=== PATIENT | female | born 1995 | race American Indian/Alaskan Native ===

== ENCOUNTER 2016-07-22 04:51 | Emergency (ER) | payer MEDICAID, OTHER ==
[2016-07-22 06:02] VITALS: BP 132/82
[2016-07-22] MEDS ORDERED: ZOFRAN ODT PO ONE (07:48)
[2016-07-22] MEDS ORDERED: NORCO 5/325 PO ONE (07:48)
[2016-07-22] MEDS ORDERED: XYLOCAINE 1% 20 mL INFILTRATI ONE (07:49)
[2016-07-22] MEDS ORDERED: KEFLEX PO ONE (07:49)
[2016-07-22] MEDS ORDERED: NACL 0.9% IR ONE (07:49)
--- NOTE | 2016-07-22 08:45 | Emergency Department Report ---
- General Chief Complaint: Skin/Abscess/Foreign Body Stated Complaint: RT MIDDLE FINGER SWOLLEN/PAIN Time Seen by Provider: 07/22/16 07:40 Source: patient Mode of arrival: Ambulatory Limitations: No Limitations - History of Present Illness Initial Comments: PT c/o R middle finger infection x 7 days. PT states she does chew her cuticles. PT states the infection drained some and improved but has since gotten worse. Onset/Timin -: Gradual, week(s) Location: other (R 3rd finger, ulnar aspect ) Extremity Location: Right: Hand Associated Symptoms: pain - Related Data Previous Rx's Medication Instructions Recorded Last Taken Type Acetaminophen/Codeine [Tylenol #3] 1 tab PO Q6H PRN #10 tab 07/22/16 Unknown Rx Cephalexin [Keflex] 500 mg PO Q6HR 7 Days 07/22/16 Unknown Rx Allergies Allergy/AdvReac Type Severity Reaction Status Date / Time No Known Allergies Allergy Unverified 10/29/13 09:13 ED Review of Systems ROS: Stated complaint: RT MIDDLE FINGER SWOLLEN/PAIN Other details as noted in HPI Comment: All other systems reviewed and negative Constitutional: chills (while in ED ). denies: fever Gastrointestinal: nausea Musculoskeletal: other (pain and swelling ) Skin: as per HPI (infection ), change in color ED Past Medical Hx - Past Medical History Previous Medical History?: No Hx Congestive Heart Failure: No Hx Diabetes: No Hx Deep Vein Thrombosis: Yes Hx Asthma: No Hx COPD: No - Surgical History Past Surgical History?: No - Social History Smoking Status: Current Every Day Smoker Substance Use Type: Marijuana - Medications Home Medications: Home Medications Medication Instructions Recorded Confirmed Last Taken Type Acetaminophen/Codeine [Tylenol #3] 1 tab PO Q6H PRN #10 tab 07/22/16 Unknown Rx Cephalexin [Keflex] 500 mg PO Q6HR 7 Days 07/22/16 Unknown Rx ED Physical Exam - General Limitations: No Limitations General appearance: alert, in no apparent distress - Head Head exam: Present: atraumatic, normocephalic - Eye Eye exam: Present: normal appearance. Absent: conjunctival injection - ENT ENT exam: Present: normal exam - Neck Neck exam: Present: normal inspection, full ROM - Respiratory Respiratory exam: Present: normal lung sounds bilaterally. Absent: respiratory distress, accessory muscle use - Cardiovascular Cardiovascular Exam: Present: regular rate, normal rhythm - Extremities Exam Extremities exam: Present: full ROM, tenderness, normal capillary refill, other (R 3rd finger with paronychia and surrounding cellulitis ) - Back Exam Back exam: Present: normal inspection, full ROM - Neurological Exam Neurological exam: Present: alert, oriented X3 - Psychiatric Psychiatric exam: Present: normal affect, normal mood - Skin Skin exam: Present: warm, dry, erythema ED Course Vital Signs 07/22/16 05:50 Temperature 98 F Pulse Rate 72 Respiratory 18 Rate Blood Pressure 132/82 O2 Sat by Pulse 100 Oximetry - Reevaluation(s) Reevaluation #1: 07/22/16 08:45 PT gave verbal consent to drain paronychia. Reevaluation #2: 07/22/16 09:02 PT encouraged to refrain from smoking, however, pt does not seem ready to quit. PT encouraged no nail biting. PT encouraged to do warm soaks. Pt aware no driving after narcotic pain medication. - I & D Right Distal Finger Type of Procedure: Simple Site: R 3rd finger tip Blade Size: 11 I & D Procedure: betadine prep, sterile drapes applied Progress: digital block to R 3rd finger, 6 mls used total. skin cleansed with betadine. 11 blade used to drain paronychia. moderate amount of purulent drainage. Ns used to irrigate site. no packing placed. - Pulse Oximetry Interpretation Digit-Finger Initial Pulse Oximetry Readin Actions Taken: none ED Medical Decision Making - Differential Diagnosis cellulitis, paronychia, felon Critical care attestation.: If time is entered above; I have spent that time in minutes in the direct care of this critically ill patient, excluding procedure time. ED Disposition Clinical Impression: Tobacco abuse Paronychia of finger Qualifiers: Laterality: right Qualified Code(s): L03.011 - Cellulitis of right finger Cellulitis Qualifiers: Site of cellulitis: extremity Site of cellulitis of extremity: finger Laterality: right Qualified Code(s): L03.011 - Cellulitis of right finger Disposition: DISCHARGED TO HOME OR SELFCARE Is pt being admited?: No Does the pt Need Aspirin: No Condition: Stable Instructions: Paronychia (ED), Cellulitis (ED), How to Stop Smoking (ED) Additional Instructions: Warm compresses multiple times a day OTC antibiotic ointment to I and D site Return to ED if worsening or concerns No ETOH or driving after taking Tylenol #3 Referrals: PRIMARY CARE, [Primary Care Provider] - 3-5 Days Time of Disposition: 09:04
== END 2016-07-22 09:25 | disposition home or self-care (01) ==
LOC: ED 04:51
DX: L03.011 Cellulitis of right finger (principal); F17.200 Nicotine dependence, unspecified, uncomplicated
CPT/HCPCS: 99282; Q0162